=== PATIENT | male | born 1965 | race Caucasian/White ===

== ENCOUNTER 2024-02-01 23:59 | Emergency (ER) | payer OTHER ==
[~2024-02-01] VITALS: Ht 177.8 cm; Wt 83.0 kg
[2024-02-02] MEDS ORDERED: VANCOMYCIN 1 GM /D5W 250 ML PB IV ONE (00:38)
[2024-02-02] MEDS ORDERED: PIPERACI/TAZO 3.375GM/D5W 50ML PB IV ONE (00:39)
[2024-02-02] MEDS: PIPERACILLIN /TAZOBACTAM 3.375 G in IV D5W 50 ML IV ONE (00:40)
[2024-02-02 00:51] LABS: BASOPHILS # (AUTO) 0.1 K/uL (0.0-0.2); BASOPHILS % (AUTO) 0.4 % (0.0-2.0); EOSINOPHILS % (AUTO) 0.3 % (0.0-6.0); HEMATOCRIT 22 % (39-51); LYMPHOCYTES # (AUTO) 0.7 K/uL (0.8-4.8); LYMPHOCYTES % (AUTO) 5.1 % (20.0-44.0); MEAN CORPUSCULAR HEMOGLOBIN 26 PG (26.0-33.0); MEAN CORPUSCULAR HGB CONC 32 g/dl (31.0-36.0); MEAN CORPUSCULAR VOLUME 81 fL (80-96); MONOCYTES # (AUTO) 0.7 K/uL (0.1-1.30); MONOCYTES % (AUTO) 4.8 % (2.0-12.0); NEUTROPHILS # (AUTO) 12.3 K/uL (1.8-8.9); NEUTROPHILS % (AUTO) 89.4 % (43.0-81.0); PLATELET COUNT (AUTO) 471 K/uL (150-450); RED BLOOD CELL COUNT(AUTO) 2.73 MIL/uL (4.5-6.0); RED CELL DISTRIBUTION WIDTH 17.8 % (11.5-15.0); WHITE BLOOD COUNT (AUTO) 13.7 K/uL (4.3-11.0)
[2024-02-02] MEDS: VANCOMYCIN 1 GM in IV D5W 250 ML IV ONE (00:57)
[2024-02-02 01:13] LABS: ALBUMIN 2.1 g/dL (3.4-5.0); BILIRUBIN,DIRECT 0.1 mg/dL (0.0-0.2); BILIRUBIN,TOTAL 0.3 mg/dL (0.2-1.0); CREATININE 0.9 mg/dL (0.6-1.3); POTASSIUM 3.4 mmol/L (3.5-5.1); TOTAL PROTEIN, SERUM 8.5 g/dL (6.4-8.2)
[2024-02-02 03:55] VITALS: BP 115/68; TEMP 98.2; O2SAT 99
== END 2024-02-02 | disposition short-term general hospital (02) ==
LOC: ER 02-02 00:04
DX: T40.2X1A Poisoning by other opioids, accidental (unintentional), initial encounter (principal); R51.9 Headache, unspecified; D64.9 Anemia, unspecified; L03.119 Cellulitis of unspecified part of limb; Y92.89 Other specified places as the place of occurrence of the external cause
CPT/HCPCS: 99285; 96365; 70450; 96368; 85025; 80048; 87040 ×2; 83605; 80076; 85652; 36415; 86140; 87070; J3370 ×2; J2543 ×2; J7060; A4223